=== PATIENT | female | born 1950 | race Caucasian/White ===

== ENCOUNTER 2018-11-28 08:46 | Day surgery (SDC) | payer MEDICARE ==
[~2018-11-28] VITALS: Ht 167.6 cm; Wt 63.6 kg
== END 2018-11-28 15:15 | disposition home or self-care (01) ==
LOC: CACL 08:46 → 5SO 09:56 → CACL 15:15
PROVIDERS: ATTEND Internal Medicine Cardiovascular Disease
DX: I47.1 Supraventricular tachycardia (principal)
CPT/HCPCS: 36415; 71046; 80053; 85025; 93613; 93623; 93653; 99156; C1730; C1766; C1894; C2630; J0153; J0461; J2405; G0378; J2250; J3010